=== PATIENT | male | born 1955 | race Caucasian/White ===

== ENCOUNTER 2018-07-07 12:04 | Observation (INO) ==
[2018-07-07] MEDS ORDERED: 0.9 % SODIUM CHLORIDE 1,000 ML IV ONE (12:25)
[2018-07-07] MEDS ORDERED: DILTIAZEM 25 MG/5 ML VIAL IV ONE ×2 (12:39→13:37)
--- NOTE | 2018-07-07 12:42 | XRay Report ---
HISTORY: Dyspnea FINDINGS: The lungs are clear and well expanded. The heart size, pulmonary vasculature mediastinum, bridgette and pleura are normal. There has been no significant change since 02/06/18. IMPRESSION: Normal exam Interpreted and Authenticated by: Eyal Vincent 07/07/18
[2018-07-07] MEDS ORDERED: DILTIAZEM 125 MG in DEXTROSE 5% IN WATER 100 ML IV SCH (12:45)
[2018-07-07 13:27] LABS: ALT/SGPT 31 U/l (0-40); Albumin 4.2 gm/dL (3.2-5.2); Albumin/Globulin Ratio 1.2 (1.0-2.3); Alkaline Phosphatase 59 U/L (39-117); Blood Urea Nitrogen 19 mg/dl (8-23)
[2018-07-07 13:50] LABS: Mean Cell Volume 89.2 fL (80.0-100.0); Mean Corpuscular HGB Conc 33.4 g/dL (31.0-36.0); Platelet Count 270 K/mcL (140-440); RBC 5.38 M/mcL (4.50-5.90); Red Cell Distribution Width 13.6 % (11.5-14.5)
--- NOTE | 2018-07-07 14:10 | Emergency Department Note ---
SOB HPI - General Chief Complaint: Shortness of Breath/Dyspnea Stated Complaint: SOB Time Seen by Provider: 07/07/18 12:15 Source: patient Mode of arrival: ambulatory Limitations: no limitations - History of Present Illness 63-year-old male presents with shortness of breath and palpitations. Onset about 30 minutes prior to arrival. He was working at [email or web address] and moving some mats when all of a sudden he felt short of breath. He was exerting himself at the time as the metastases are heavy. He has felt short of breath and like his heart is beating fast since that happened and it has been consistent. No dizziness or chest pain. Has never had anything like this previously. No recent cough or cold or illness. No treatments prior to arrival. Associated symptoms: Reports: palpitations. Denies: chest pain, pain with inspiration, fever, cough, wheezing, sputum production, orthopnea, lower extremity pain, parasthesias, carpopedal spasm, hemoptysis, diaphoresis, nausea/vomiting, syncope, abdominal pain Treatment prior to arrival: none - Related Data Home Medications Medication Instructions Recorded Confirmed losartan 100 mg tablet 100 mg PO QDAY 01/13/18 07/07/18 Allergies Allergy/AdvReac Type Severity Reaction Status Date / Time hydrochlorothiazide AdvReac Intermediate Muscle Pain Verified 07/07/18 12:05 Review of Systems All systems ED: reviewed and negative except as stated. Past Medical History - Past Medical History [facility] Narrative: Medical History (Last Reviewed 02/23/18 @ 13:08 by Karen Hernandez CMA) Allergic rhinitis (Chronic) Eczema (Chronic) Essential hypertension (Chronic) Familial hypercholesterolemia (Chronic) Erectile dysfunction (Chronic) Hyperglycemia (Chronic) Abdominal pain (Chronic) GERD (gastroesophageal reflux disease) (Chronic) History of osteoarthritis (Chronic) Prostatitis (Chronic) Past Surgical History (Last Updated 02/23/18 @ 13:09 by Karen Hernandez CMA) History of appendectomy (Chronic) History of colonoscopy (Chronic) History of hernia surgery (Chronic) - Social History smoking status: Never smoker Alcohol use: Reports: Rarely Drug use: Reports: none Physical Exam Limitations: no limitations General appearance: alert Head: atraumatic, normocephalic, normal inspection Eye: Present: normal appearance. Absent: conjunctival injection ENT: normal exam, normal oropharynx, mucous membranes moist, TM's normal bilaterally, normal external ear exam Neck: Present: normal inspection, trachea midline. Absent: tenderness, lymphadenopathy Chest: Present: symmetric chest wall rise Respiratory: Present: normal lung sounds bilaterally. Absent: respiratory distress, rales/crackles, accessory muscle use Cardiovascular: Present: irregular rhythm. Absent: normal rhythm (A. fib a flutter in the 140s 150s on arrival, EKG read by Dr. Menendez), systolic murmur, diastolic murmur Neurological: Present: alert, oriented X3 Psychiatric: Present: normal affect, normal mood Skin: Present: warm, dry, intact, normal color. Absent: rash, cyanosis, diaphoresis, erythema Course Course Narrative: Patient was given Cardizem bolus of 10 mg IV and placed on a drip. His rate did improve but he was still spiking up into the 150s. Given a second bolus of 20 mg and rate now controlled in the 70s-80s but remains in A. fib, a flutter on a Cardizem drip. At 1410, the hospitalist Dr. Cline agrees to accept this patient. Vital Signs Temperature 96.8 F L 07/07/18 12:05 Pulse Rate 148 H 07/07/18 12:05 Respiratory Rate 16 07/07/18 12:05 Blood Pressure 165/108 07/07/18 12:05 Pulse Oximetry (%) 100 07/07/18 12:05 Temperature 96.8 F L 07/07/18 12:05 Pulse Rate 148 H 07/07/18 12:05 Respiratory Rate 16 07/07/18 12:05 Blood Pressure 165/108 07/07/18 12:05 Pulse Oximetry (%) 100 07/07/18 12:05 Shortness of Breath/Dyspnea - Lab Data Lab results reviewed: Yes I reviewed the patient's lab results. Result diagrams: 07/07/18 12:20 07/07/18 12:20 Lab Results 07/07/18 07/07/18 07/07/18 Range/Units 12:17 12:17 12:17 WBC (4.5-11.0) K/mcL RBC (4.50-5.90) M/mcL Hgb (13.5-16.5) g/dL Hct (41.0-55.0) % MCV (80.0-100.0) fL MCH (26.0-34.0) pg MCHC (31.0-36.0) g/dL RDW (11.5-14.5) % Plt Count (140-440) K/mcL MPV (7.4-10.4) fL Gran % (38.0-78.0) % Lymph % (Auto) (15.5-49.0) % [place] % (Auto) (1.0-12.0) % Eos % (Auto) (0.0-7.0) % Baso % (Auto) (0.0-2.0) % Gran # (1.8-8.0) K/mcL PT 13.0 (11.9-14.5) sec INR 1.0 (0.9-1.1) D-Dimer < 0.27 (0.00-0.40) ug/ml Sodium (133-145) mmol/L Potassium (3.3-5.1) mmol/L Chloride (96-108) mmol/L Carbon Dioxide (22-30) mmol/L Anion Gap (8-16) BUN (8-23) mg/dl Creatinine (0.7-1.2) mg/dl GFR Calculation Glucose (70-105) mg/dL Calcium (8.6-10.4) mg/dl Magnesium 2.0 (1.6-2.5) mg/dL Total Bilirubin (0.0-1.0) mg/dL AST (0-37) U/l ALT (0-40) U/l Alkaline Phosphatase (39-117) U/L Troponin T (0-0.03) ng/ml Total Protein (5.9-8.4) gm/dL Albumin (3.2-5.2) gm/dL Globulin (2.2-3.7) gm/dL Albumin/Globulin Ratio (1.0-2.3) 07/07/18 07/07/18 07/07/18 Range/Units 12:20 12:20 12:20 WBC 9.0 (4.5-11.0) K/mcL RBC 5.38 (4.50-5.90) M/mcL Hgb 16.0 (13.5-16.5) g/dL Hct 48.0 (41.0-55.0) % MCV 89.2 (80.0-100.0) fL MCH 29.8 (26.0-34.0) pg MCHC 33.4 (31.0-36.0) g/dL RDW 13.6 (11.5-14.5) % Plt Count 270 (140-440) K/mcL MPV 9.3 (7.4-10.4) fL Gran % 60.0 (38.0-78.0) % Lymph % (Auto) 20.0 (15.5-49.0) % [place] % (Auto) 1.0 (1.0-12.0) % Eos % (Auto) 18.0 H (0.0-7.0) % Baso % (Auto) 1.0 (0.0-2.0) % Gran # (1.8-8.0) K/mcL PT (11.9-14.5) sec INR (0.9-1.1) D-Dimer (0.00-0.40) ug/ml Sodium 140 (133-145) mmol/L Potassium 3.9 (3.3-5.1) mmol/L Chloride 103 (96-108) mmol/L Carbon Dioxide 23 (22-30) mmol/L Anion Gap 14.0 (8-16) BUN 19 (8-23) mg/dl Creatinine 0.8 (0.7-1.2) mg/dl GFR Calculation 96 Glucose 105 (70-105) mg/dL Calcium 9.3 (8.6-10.4) mg/dl Magnesium (1.6-2.5) mg/dL Total Bilirubin 0.4 (0.0-1.0) mg/dL AST 36 (0-37) U/l ALT 31 (0-40) U/l Alkaline Phosphatase 59 (39-117) U/L Troponin T < 0.01 (0-0.03) ng/ml Total Protein 7.6 (5.9-8.4) gm/dL Albumin 4.2 (3.2-5.2) gm/dL Globulin 3.4 (2.2-3.7) gm/dL Albumin/Globulin Ratio 1.2 (1.0-2.3) - Radiology Data Radiology results reviewed: Yes I reviewed the patient's radiology results. Disposition Pt seen by DRIVER'S EDUCATION INSTRUCTOR/PA only: Yes Clinical Impression: New onset atrial fibrillation, SOB (shortness of breath) Disposition: Home, Self-Care Condition: Fair Referrals: Juan Luis Sparks ARNP [Primary Care Provider] - Time of Disposition: 14:15
[2018-07-07 14:17] LABS: Amphetamine Screen,Urine NONE DETECTED (NONDETECTED); Benzodiazepines Screen,Urine NONE DETECTED (NONDETECTED); Cocaine Screen,Urine NONE DETECTED (NONDETECTED); Opiate Screen,Urine NONE DETECTED (NONDETECTED); Oxycodone, Urine Screen NONE DETECTED (NONDETECTED)
--- NOTE | 2018-07-07 14:26 | Internal Med History&Physical ---
Medical - H&P: HPI Patient information: Note initiated : 07/07/18 at 2:22 pm Service Date, if different from initiated Date: [] Patient: Joe Monterroso a 63 y/o M admitted on for Shortness of breath. Chief Complaint: [] Chief complaint: SOB, chest palpitations History of present illness: Mr. Monterroso is a 63 year old M with a history of hypertension who presents to the ER with symptoms of worsening shortness of breath and palpitation. Symptoms started around noon when patient was carrying laundry at work. He denies associated chest pain, tearing neck pain, diaphoresis. He denies recent [id number] medications/herbal supplement distance. He denies cocaine or amphetamine use. Denies weight loss, recent lower extremity surgery, or lower extremity swelling. He further denies binge alcoholism or prior similar episodes. Initial workup in the ER was significant for A. fib with RVR. Patient was started on diltiazem drip subsequently rate control was achieved. Hospitalist service was consulted. At the time of evaluation patient is accompanied with his . He is able to endorse history as above. Denies recent travel/weight loss/diarrhea, dysuria. Review of systems 10 point review of system was performed and is negative except for one discussed above Medical - H&P: PMH Medical history: Allergic rhinitis (Chronic) Eczema (Chronic) Essential hypertension (Chronic) Familial hypercholesterolemia (Chronic) Erectile dysfunction (Chronic) Hyperglycemia (Chronic) Abdominal pain (Chronic) GERD (gastroesophageal reflux disease) (Chronic) History of osteoarthritis (Chronic) Prostatitis (Chronic) Surgical history: History of appendectomy (Chronic) History of colonoscopy (Chronic) 2009 History of hernia surgery (Chronic) Left inguinal incarcerated 02/08/18 Pertinent family history: Mother Hypertension Heart disease TIA (transient ischemic attack) Father FH: CABG (coronary artery bypass surgery) Heart disease Bile duct cancer Brother Hypertension Social history: marital status: occupational status: employed smoking status: Never smoker alcohol intake frequency: 0-2 drinks per day substance use type: does not use Medical - H&P: Meds Home Medications Medication Instructions Recorded Confirmed Type losartan 100 mg tablet 100 mg PO QDAY 01/13/18 07/07/18 History Allergies Allergy/AdvReac Type Severity Reaction Status Date / Time hydrochlorothiazide AdvReac Intermediate Muscle Pain Verified 07/07/18 12:05 Medical - H&P: Exam - Constitutional Vitals: Temp Pulse Resp BP Pulse Ox 96.8 F L 148 H 16 165/108 100 07/07/18 12:05 07/07/18 12:05 07/07/18 12:05 07/07/18 12:05 07/07/18 12:05 General appearance: no acute distress Exam: Alert oriented Eye movement symmetric Oral cavity dry no ear nose discharge Head normocephalic Neck no lymphadenopathy S1-S2 irregular rhythm Chest clear to auscultation Abdomen soft nontender nondistended Lower extremity no cyanosis clubbing no joint swelling Skin no suspicious lesion Psych alert cooperative no anxiety Neuro nonfocal Medical - H&P: Reslt - Labs CBC & Chem 7: 07/07/18 12:20 07/07/18 12:20 Labs: Short CBC 07/07/18 Range/Units 12:20 WBC 9.0 (4.5-11.0) K/mcL Hgb 16.0 (13.5-16.5) g/dL Hct 48.0 (41.0-55.0) % Plt Count 270 (140-440) K/mcL BMP 07/07/18 12:20 Sodium 140 Potassium 3.9 Chloride 103 Carbon Dioxide 23 BUN 19 Creatinine 0.8 Glucose 105 Calcium 9.3 Cardiac Enzymes 07/07/18 Range/Units 12:20 Troponin T < 0.01 (0-0.03) ng/ml Liver Function 07/07/18 Range/Units 12:20 Total Bilirubin 0.4 (0.0-1.0) mg/dL AST 36 (0-37) U/l ALT 31 (0-40) U/l Alkaline Phosphatase 59 (39-117) U/L Albumin 4.2 (3.2-5.2) gm/dL Medical - H&P: A/P (1) New onset atrial fibrillation Current visit: Yes Status: Acute * Afib with RVR- Suspect related to suboptimal HTN control. Initial blood pressures 170s systolic. Continue rate control (IV CCB/B Dianne),Check TSH, D dimer. TELE admit. Echocardiogram to evaluate chamber size/valvular anatomy. Consider anticoagulation if paroxysmal, attempt chemical cardioversion based on echo findings. If fails Electrical cardioversion. * HTN- on losartan * Full code * Prophylaxis heparin Plan * CCB drip/beta-dianne * ECHO * Cardioversion based on echo finding * Cardiology consult * TSH * Obs admit
[2018-07-07] MEDS ORDERED: MAGNESIUM SULFATE 2 GM/50 ML BAG IV PRN (16:04)
[2018-07-07] MEDS ORDERED: ONDANSETRON 4 MG/2 ML VIAL IV PRN (16:04)
[2018-07-07] MEDS ORDERED: ACETAMINOPHEN 325 MG TABLET PO PRN (16:04)
[2018-07-07] MEDS ORDERED: POTASSIUM CHLORIDE 20 MEQ PACKET PO PRN (16:04)
[2018-07-07] MEDS ORDERED: ACETAMINOPHEN 1,000 MG/100 ML BOTTLE IV PRN (16:04)
[2018-07-07] MEDS ORDERED: METOPROLOL TARTRATE 25 MG TABLET ONE (16:28)
[2018-07-07] MEDS: METOPROLOL TARTRATE 25 MG TABLET PO SCH ×2 (16:30→21:30)
[2018-07-07] MEDS: METOPROLOL TARTRATE 5 MG/5 ML VIAL IV SCH ×2 (16:39→16:40)
[2018-07-07] MEDS ORDERED: SENNOSIDES/DOCUSATE SODIUM 1 TAB TABLET PO SCH (21:00)
[2018-07-07] MEDS: DOCUSATE SODIUM 100 MG CAPSULE PO SCH (21:30)
[2018-07-07] MEDS: 0.9 % SODIUM CHLORIDE 10 ML SYRINGE IV SCH (21:30)
[2018-07-07] MEDS: HEPARIN 5,000 UNIT/ML VIAL SQ SCH (21:31)
[2018-07-08] MEDS: 0.9 % SODIUM CHLORIDE 10 ML SYRINGE IV SCH (05:40)
[2018-07-08 05:43] LABS: Mean Cell Volume 89.4 fL (80.0-100.0); Mean Corpuscular HGB Conc 33.5 g/dL (31.0-36.0); Platelet Count 244 K/mcL (140-440); RBC 4.79 M/mcL (4.50-5.90); Red Cell Distribution Width 13.7 % (11.5-14.5)
[2018-07-08 06:43] LABS: ALT/SGPT 24 U/l (0-40); Albumin 3.4 gm/dL (3.2-5.2); Albumin/Globulin Ratio 1.2 (1.0-2.3); Alkaline Phosphatase 49 U/L (39-117); Bilirubin,Direct < 0.2 mg/dL (0.0-0.3); Blood Urea Nitrogen 17 mg/dl (8-23); Gamma Glutamyl Transpeptidase 16 U/L (8-61); Uric Acid 5.6 mg/dL (2.5-8.0)
[2018-07-08 06:53] LABS: Eosinophils % (Manual) 5 % (0-7); Lymphocytes % 24 % (15-49); Monocytes % (Manual) 12 % (1-12); Platelet Estimate NORMAL (NORMAL); RBC Morphology NORMAL (NORMAL); Segmented Neutrophils % 56 % (38-78)
[2018-07-08] MEDS: HEPARIN 5,000 UNIT/ML VIAL SQ SCH (08:46)
[2018-07-08] MEDS: METOPROLOL TARTRATE 25 MG TABLET PO SCH (08:46)
[2018-07-08] MEDS: DOCUSATE SODIUM 100 MG CAPSULE PO SCH ×2 (08:46→08:51)
[2018-07-08] MEDS ORDERED: MULTIVIT,THER IRON,CA,FA & MIN 1 TABLET PO SCH (09:00)
--- NOTE | 2018-07-08 09:27 | Discharge Summary ---
Medical - DS: Prov Patient information: Note initiated : 07/08/18 at 9:23 am Service Date, if different from initiated Date: [] Patient: Joe Monterroso a 63 y/o M admitted on 07/07/18 for Shortness of breath. Chief Complaint: [] Date of admission: 07/07/18 15:55 Discharge date: 07/08/18 Primary care physician: TERESITA Hernandez Consults: 07/07/18 14:15 Consult to Physician [CONS] Stat Comment: Consulting Provider: Luis Park Reason For Exam: Physician to Consult Medical - DS: Meds - Discharge Medications Active and Home Medications: Home Medications losartan 100 mg tablet 100 mg PO QDAY 01/13/18 [History Confirmed 07/07/18 Last Taken 07/07/18 04:00] Medical - DS: Hosp Hospital course: Discharge diagnosis * Afib with RVR-converted back to sinus spontaneously. Unclear etiology. TSH normal. No OTC medication/drug abuse history. No history of clotting disorder. Echocardiogram results pending. Patient however feeling at baseline and requesting discharge. Advised to follow primary care physician in 1 week. We will forward a copy of echocardiogram to primary care physician * HTN- on losartan Brief hospital course Mr. Monterroso is a 63 year old M with a history of hypertension who presents to the ER with symptoms of worsening shortness of breath and palpitation. Symptoms started around noon when patient was carrying laundry at work. He denies associated chest pain, tearing neck pain, diaphoresis. He denies recent [id number] medications/herbal supplement distance. He denies cocaine or amphetamine use. Denies weight loss, recent lower extremity surgery, or lower extremity swelling. He further denies binge alcoholism or prior similar episodes. Initial workup in the ER was significant for A. fib with RVR. Patient was started on diltiazem drip subsequently rate control was achieved. Hospitalist service was consulted. 07/08-patient converted to sinus rhythm shortly after admission. Was managed overnight on telemetry. Diltiazem was discontinued. Patient did not have any further episodes of atrial fibrillation or chest palpitation. Patient ambulating and tolerating diet. Echocardiogram performed results pending. TSH within normal limits. Cardiac enzymes negative. Patient is discharging with advised to follow-up with primary care physician. Also advised to return to ER if recurrent episodes of chest pain, shortness of breath, palpitation or lightheadedness noted Discharge diagnosis: . - Time Spent with Patient Total time spent providing and/or coordinating discharge services: Greater than 30 minutes Medical - DS: Exam - Constitutional Vitals: Vital Signs Temp Pulse Pulse Resp BP BP Pulse Ox 07/08/18 09:01 124/80 97 07/08/18 08:01 98.2 F 16 138/82 98 07/08/18 07:01 48 L 18 134/83 99 07/08/18 06:01 54 L 124/84 97 07/08/18 06:00 49 L 97 07/08/18 05:47 47 L 97 07/08/18 05:01 48 L 124/77 98 07/08/18 04:04 57 L 99 07/08/18 04:01 98.0 F 47 L 16 134/80 98 07/08/18 03:21 52 L 97 07/08/18 03:01 48 L 137/77 97 07/08/18 02:01 53 L 132/88 97 07/08/18 01:13 55 L 97 07/08/18 01:01 59 L 126/81 98 07/08/18 00:12 58 L 98 07/08/18 00:01 97.5 F 53 L 14 123/78 99 07/07/18 23:11 51 L 98 07/07/18 23:01 59 L 136/85 100 07/07/18 22:01 58 L 130/82 98 07/07/18 21:02 65 109/89 98 07/07/18 20:01 99.1 F H 56 L 20 129/85 99 07/07/18 20:00 99.1 F H 20 129/85 99 07/07/18 19:01 56 L 131/82 98 07/07/18 18:37 58 L 98 07/07/18 18:01 54 L 132/81 98 07/07/18 17:01 63 149/91 99 07/07/18 16:31 65 178/92 100 07/07/18 16:17 66 97 07/07/18 16:16 66 137/90 99 07/07/18 16:08 65 142/90 97 07/07/18 15:55 97.9 F 66 16 132/85 178/92 100 07/07/18 15:46 66 22 124/86 97 07/07/18 15:31 64 120/81 97 07/07/18 15:21 66 11 L 96 07/07/18 15:16 27 H 132/85 07/07/18 15:01 105 H 20 123/83 97 07/07/18 14:46 103 H 22 124/78 98 07/07/18 14:31 74 10 L 122/79 97 07/07/18 14:16 79 18 120/73 98 07/07/18 14:01 80 22 122/73 99 07/07/18 13:46 81 22 121/78 96 07/07/18 13:31 103 H 21 131/98 97 07/07/18 13:19 121 H 17 146/102 96 07/07/18 13:16 69 20 149/125 98 07/07/18 13:01 122 H 24 H 152/101 99 07/07/18 12:46 84 21 154/125 99 07/07/18 12:31 137 H 16 155/103 97 07/07/18 12:05 96.8 F L 148 H 16 165/108 100 Intake and Output 07/07/18 07/08/18 07/08/18 21:59 05:59 13:59 Intake Total 1640 400 240 Output Total 300 300 500 Balance 1340 100 -260 Intake: IV 1000 Sodium Chloride 0.9% 1,000 ml @ 1000 Wide Open IV BOLUS ONE Rx#: [id number] Oral 640 400 240 Output: Void Amount 300 300 500 Other: Meal Dinner Breakfast Percent of Meal Consumed 100% 100% Feeding Ability Independent Independent Urine Appearance Clear Clear Urine Color Straw Dark Yellow Urine Odor Normal Normal Weight 181 lb 11.2 oz Medical - DS: Data Labs on day of discharge: Labs from last 24 hours 07/08/18 07/08/18 07/07/18 03:40 03:40 16:04 WBC 5.1 RBC 4.79 Hgb 14.3 Hct 42.8 MCV 89.4 MCH 29.9 MCHC 33.5 RDW 13.7 Plt Count 244 MPV 9.0 Gran % Lymph % (Auto) [place] % (Auto) Eos % (Auto) Baso % (Auto) Gran # Total Counted 100 Seg Neutrophils % 56 Band Neutrophils % Not Reportable Lymphocytes % 24 Monocytes % (Manual) 12 Eosinophils % (Manual) 5 Reactive Lymphocytes 3 H Platelet Estimate Normal RBC Morphology Normal ESR PT INR D-Dimer Sodium 140 Potassium 3.9 Chloride 106 Carbon Dioxide 24 Anion Gap 10.0 BUN 17 Creatinine 0.8 GFR Calculation 96 Glucose 77 Uric Acid 5.6 Calcium 8.4 L Phosphorus 3.0 Magnesium 2.1 Total Bilirubin 0.5 Direct Bilirubin < 0.2 GGT 16 AST 27 ALT 24 Alkaline Phosphatase 49 Lactate Dehydrogenase 222 Troponin T C-Reactive Protein < 0.3 Total Protein 6.2 Albumin 3.4 Globulin 2.8 Albumin/Globulin Ratio 1.2 Triglycerides 47 TSH Urine Opiates Screen Ur Opiates Confirm Ur Oxycodone Screen Urine Methadone Screen Ur Methadone Confirm Ur Barbiturates Screen Ur Barbiturate Confirm Ur Phencyclidine Scrn Urine PCP Confirm Ur Amphetamines Screen U Amphetamines Confirm U Benzodiazepines Scrn U Benzodiazepine Confm Urine Cocaine Screen Urine Cocaine Confirm U Cannabinoids Confirm U Marijuana (THC) Screen 07/07/18 07/07/18 07/07/18 16:04 13:29 12:20 WBC RBC Hgb Hct MCV MCH MCHC RDW Plt Count MPV Gran % Lymph % (Auto) [place] % (Auto) Eos % (Auto) Baso % (Auto) Gran # Total Counted Seg Neutrophils % Band Neutrophils % Lymphocytes % Monocytes % (Manual) Eosinophils % (Manual) Reactive Lymphocytes Platelet Estimate RBC Morphology ESR 3 PT INR D-Dimer Sodium Potassium Chloride Carbon Dioxide Anion Gap BUN Creatinine GFR Calculation Glucose Uric Acid Calcium Phosphorus Magnesium Total Bilirubin Direct Bilirubin GGT AST ALT Alkaline Phosphatase Lactate Dehydrogenase Troponin T C-Reactive Protein Total Protein Albumin Globulin Albumin/Globulin Ratio Triglycerides TSH 3.91 Urine Opiates Screen None detected Ur Opiates Confirm Not Reportable Ur Oxycodone Screen None detected Urine Methadone Screen None detected Ur Methadone Confirm Not Reportable Ur Barbiturates Screen None detected Ur Barbiturate Confirm Not Reportable Ur Phencyclidine Scrn None detected Urine PCP Confirm Not Reportable Ur Amphetamines Screen None detected U Amphetamines Confirm Not Reportable U Benzodiazepines Scrn None detected U Benzodiazepine Confm Not Reportable Urine Cocaine Screen None detected Urine Cocaine Confirm Not Reportable U Cannabinoids Confirm Not Reportable U Marijuana (THC) Screen None detected 07/07/18 07/07/18 07/07/18 12:20 12:20 12:20 WBC RBC Hgb Hct MCV MCH MCHC RDW Plt Count MPV Gran % Lymph % (Auto) [place] % (Auto) Eos % (Auto) Baso % (Auto) Gran # Total Counted Pending Seg Neutrophils % Band Neutrophils % Pending Lymphocytes % Monocytes % (Manual) Eosinophils % (Manual) Reactive Lymphocytes Platelet Estimate Pending RBC Morphology Pending ESR PT INR D-Dimer Sodium 140 Potassium 3.9 Chloride 103 Carbon Dioxide 23 Anion Gap 14.0 BUN 19 Creatinine 0.8 GFR Calculation 96 Glucose 105 Uric Acid Calcium 9.3 Phosphorus Magnesium Total Bilirubin 0.4 Direct Bilirubin GGT AST 36 ALT 31 Alkaline Phosphatase 59 Lactate Dehydrogenase Troponin T < 0.01 C-Reactive Protein Total Protein 7.6 Albumin 4.2 Globulin 3.4 Albumin/Globulin Ratio 1.2 Triglycerides TSH Urine Opiates Screen Ur Opiates Confirm Ur Oxycodone Screen Urine Methadone Screen Ur Methadone Confirm Ur Barbiturates Screen Ur Barbiturate Confirm Ur Phencyclidine Scrn Urine PCP Confirm Ur Amphetamines Screen U Amphetamines Confirm U Benzodiazepines Scrn U Benzodiazepine Confm Urine Cocaine Screen Urine Cocaine Confirm U Cannabinoids Confirm U Marijuana (THC) Screen 07/07/18 07/07/18 07/07/18 12:20 12:17 12:17 WBC 9.0 RBC 5.38 Hgb 16.0 Hct 48.0 MCV 89.2 MCH 29.8 MCHC 33.4 RDW 13.6 Plt Count 270 MPV 9.3 Gran % 60.0 Lymph % (Auto) 20.0 [place] % (Auto) 1.0 Eos % (Auto) 18.0 H Baso % (Auto) 1.0 Gran # Total Counted Seg Neutrophils % Band Neutrophils % Lymphocytes % Monocytes % (Manual) Eosinophils % (Manual) Reactive Lymphocytes Platelet Estimate RBC Morphology ESR PT 13.0 INR 1.0 D-Dimer Sodium Potassium Chloride Carbon Dioxide Anion Gap BUN Creatinine GFR Calculation Glucose Uric Acid Calcium Phosphorus Magnesium 2.0 Total Bilirubin Direct Bilirubin GGT AST ALT Alkaline Phosphatase Lactate Dehydrogenase Troponin T C-Reactive Protein Total Protein Albumin Globulin Albumin/Globulin Ratio Triglycerides TSH Urine Opiates Screen Ur Opiates Confirm Ur Oxycodone Screen Urine Methadone Screen Ur Methadone Confirm Ur Barbiturates Screen Ur Barbiturate Confirm Ur Phencyclidine Scrn Urine PCP Confirm Ur Amphetamines Screen U Amphetamines Confirm U Benzodiazepines Scrn U Benzodiazepine Confm Urine Cocaine Screen Urine Cocaine Confirm U Cannabinoids Confirm U Marijuana (THC) Screen 07/07/18 12:17 WBC RBC Hgb Hct MCV MCH MCHC RDW Plt Count MPV Gran % Lymph % (Auto) [place] % (Auto) Eos % (Auto) Baso % (Auto) Gran # Total Counted Seg Neutrophils % Band Neutrophils % Lymphocytes % Monocytes % (Manual) Eosinophils % (Manual) Reactive Lymphocytes Platelet Estimate RBC Morphology ESR PT INR D-Dimer < 0.27 Sodium Potassium Chloride Carbon Dioxide Anion Gap BUN Creatinine GFR Calculation Glucose Uric Acid Calcium Phosphorus Magnesium Total Bilirubin Direct Bilirubin GGT AST ALT Alkaline Phosphatase Lactate Dehydrogenase Troponin T C-Reactive Protein Total Protein Albumin Globulin Albumin/Globulin Ratio Triglycerides TSH Urine Opiates Screen Ur Opiates Confirm Ur Oxycodone Screen Urine Methadone Screen Ur Methadone Confirm Ur Barbiturates Screen Ur Barbiturate Confirm Ur Phencyclidine Scrn Urine PCP Confirm Ur Amphetamines Screen U Amphetamines Confirm U Benzodiazepines Scrn U Benzodiazepine Confm Urine Cocaine Screen Urine Cocaine Confirm U Cannabinoids Confirm U Marijuana (THC) Screen Medical - DS: A/P - Patient/Caregiver Discharge Instructions Activity: increase activity as tolerated Diet: Regular Diet Additional Instructions: Follow-up PCP in 5-7 days Return to ER if chest palpitation, shortness of breath, lightheadedness noted Please forward a copy of echocardiogram to primary care physician - Problem Maintenance (1) New onset atrial fibrillation Status: Acute - Follow up Plan Follow up with: Juan Luis Sparks ARNP [Primary Care Provider] - Disposition: Home, Self-Care Prognosis: Fair Rehab Potential: Fair I certify that the patient requires SNF services: No Overall status at discharge: patient is progressing back to baseline Medical - DS: Qual - VTE Deep Vein Thrombosis/Pulmonary Embolism Present on Admission: No
[2018-07-08] MEDS ORDERED: DILTIAZEM 125 MG in DEXTROSE 5% IN WATER 100 ML IV SCH (12:00)
[2018-07-11 11:06] LABS: Segmented Neutrophils % 59
[2018-07-11 11:07] LABS: Band Neutrophils % 1; Eosinophils % (Manual) 1; Lymphocytes % 20; Monocytes % (Manual) 18
[2018-07-11 11:08] LABS: Basophils % (Manual) 1; Platelet Estimate NORMAL; RBC Morphology NORMAL
== END 2018-07-08 10:20 | disposition home or self-care (01) ==
LOC: ED 12:04 → ICU 12:04
PROVIDERS: ADMIT Internal Medicine; ATTEND Internal Medicine